=== PATIENT | female | born 1935 | race Caucasian/White ===

== ENCOUNTER 2022-05-24 13:24 | Outpatient (CLI) | payer MEDICARE, BC | END 2022-05-24 13:25 | disposition home or self-care (01) | LOC: MRI 13:24 | PROVIDERS: ATTEND Nurse Practitioner Family | DX: S32.049A Unspecified fracture of fourth lumbar vertebra, initial encounter for closed fracture (principal); M47.26 Other spondylosis with radiculopathy, lumbar region | CPT/HCPCS: 72148 ==

== ENCOUNTER 2022-07-04 13:57 | Outpatient (CLI) | payer MEDICARE, BC | END 2022-07-04 13:58 | disposition home or self-care (01) | LOC: SCSMRI 13:57 | PROVIDERS: ATTEND Anesthesiology Pain Medicine | DX: S32.040G Wedge compression fracture of fourth lumbar vertebra, subsequent encounter for fracture with delayed healing (principal); M47.816 Spondylosis without myelopathy or radiculopathy, lumbar region; Z98.890 Other specified postprocedural states | CPT/HCPCS: 72148; 74018 ==

== ENCOUNTER 2024-05-16 08:56 | Outpatient (CLI) | payer MEDICARE | END 2024-05-16 08:57 | disposition home or self-care (01) | LOC: BICMRI 08:56 | PROVIDERS: ATTEND Nurse Practitioner Family | DX: M54.6 Pain in thoracic spine (principal); S22.061A Stable burst fracture of T7-T8 vertebra, initial encounter for closed fracture | CPT/HCPCS: 72146 ==